=== PATIENT | male | born 1950 | race Caucasian/White ===

== ENCOUNTER 2017-11-20 13:05 | Day surgery (SDC) | payer OTHER ==
[~2017-11-20] VITALS: Ht 177.8 cm; Wt 89.9 kg
[~2017-11-20 13:05] MED LIST: ABAC300; ASPI325; ASPI325 PO; ASPI325EC PO; ATOR20 PO; CIPR500 PO; CORGARD20 MG; CORGARD20 MG PO; DOCSEN PO; DOXA2 PO; DOXA4 PO; Diovan40 MG PO; FINASTERIDE1 MG PO; HALO5 PO; LISI20 PO; METO25ER; METO25ER PO; NADO20 PO; OMEP40CA12 PO; OXYACE5T PO; OXYC5 PO; PHENA100 PO; SIMV40 PO; WARF5 PO; [UNRECOGNIZED DRUG - OTHER] PO; [UNRECOGNIZED DRUG - REMARK]; [UNRECOGNIZED DRUG - REMARK]
[2017-11-20] MEDS ORDERED: LISI20 (13:24)
[2017-11-20] MEDS ORDERED: ROSU10TA (13:24)
== END 2017-11-20 14:16 | disposition home or self-care (01) ==
LOC: ORSCSDS 13:05
PROVIDERS: Internal Medicine Gastroenterology
PROC: 0DJD8ZZ Inspection of Lower Intestinal Tract, Via Natural or Artificial Opening Endoscopic (ICD-10-PCS; principal; 2017-11-20 14:30)
DX: Z12.11 Encounter for screening for malignant neoplasm of colon (principal); K64.8 Other hemorrhoids; K57.30 Diverticulosis of large intestine without perforation or abscess without bleeding; K63.89 Other specified diseases of intestine; G47.33 Obstructive sleep apnea (adult) (pediatric); I10 Essential (primary) hypertension; E78.00 Pure hypercholesterolemia, unspecified; F41.1 Generalized anxiety disorder; I48.91 Unspecified atrial fibrillation; I73.9 Peripheral vascular disease, unspecified; K58.9 Irritable bowel syndrome, unspecified; Z79.82 Long term (current) use of aspirin; Z79.899 Other long term (current) drug therapy

== ENCOUNTER → 2019-04-29 | Outpatient (CLI) | payer OTHER ==
[~2019-04-29] MED LIST changes: +CIPR750 PO; +DEXA4 PO; +LISI20; +METO10 PO; +METR500 PO; +OLAN5 PO; +ONDA4ODT MM; +OXYB5 PO; +ROSU10TA; +ROSU10TA PO; +SILDENAFIL20 MG PO; +TADA10TA PO; +XARELTO20 MG PO
== END | disposition home or self-care (01) ==
LOC: PLD 07:13 → LAB SHORT 07:13
DX: C10.9 Malignant neoplasm of oropharynx, unspecified (principal); R59.0 Localized enlarged lymph nodes
CPT/HCPCS: 88173; 88305; 88342

== ENCOUNTER 2019-06-14 06:10 | Day surgery (SDC) | payer OTHER ==
[~2019-06-14] VITALS: Ht 180.3 cm; Wt 91.0 kg
[~2019-06-14 06:10] MED LIST changes: -SILDENAFIL20 MG PO
--- NOTE | 2019-06-14 06:41 | NUR ---
History, Chart, Medications and Allergies reviewed before start of procedure. Patient confirms NPO status and agrees with scheduled surgery. Lungs clear T/O to Auscultation. Pre-Op teaching done. Pt verbalizes understanding. Patient reports completing Chlorhexadine shower X2 prior to admission to hospital. Patient States Post-Procedure ride home has been arranged. PATIENT REMOVED HIS [place] RING AND A FALSE TOOTH AND PLACED IN A CLEAR BAGGIE IN HIS BELONGINGS AT ADMIT.
[2019-06-14] MEDS ORDERED: SILDENAFIL20 MG PO (07:19)
--- NOTE | 2019-06-14 07:19 | NUR ---
TRACKER EXPLAINED TO FAMILY, OPPORTUNITY FOR QUESTIONS PROVIDED.
--- NOTE | 2019-06-14 07:27 | NUR ---
BLOOD BANK ASSISTANT REPORT COMPLETED AT BEDSIDE WITH BRENNEN VELASQUEZ RN.
--- NOTE | 2019-06-14 07:30 | NUR ---
OR WILL LEAVE BILL ACCESSED FOR HIS TREATMENT TODAY.
--- NOTE | 2019-06-14 07:33 | NUR ---
CHANGE OF PLANS, WILL CALL [facility] TO CLARIFY WHEN FLUID INFUSION WILL BE HAPPENING AND DECIDE IF MEDIPORT WILL BE LEFT ACCESSED. CLARIFIED WITH PATIENT THAT HIS TREATMENT TODAY IS FOR RADIATION ONLY.
--- NOTE | 2019-06-14 08:42 | NUR ---
06/14/19 0842 Diane Gray INTO OR 2 POST MEDIPORT PLACEMENT FOR PEG TUBE PLACEMENT. PLAN FOR BRENNEN TO BE PRESENT FOR EXTUBATION ASSIST WITH DR ZAYAS.
--- NOTE | 2019-06-14 09:50 | NUR ---
DISCUSSED ADMINISTRATION OF ADDITIONAL FLUIDS FOR PATIENT DURING OR CASE WITH , CHERYLE HAS NOT BEEN TAKING PO FLUIDS AT ALL AND THERE IS AN APPOINTMENT FOR MONDAY IN [facility] (PER ) TO GET ADDITIONAL FLUIDS THROUGH MEDIPORT. PATIENT'S THROAT IS VERY SORE AFTER THE PROCEDURE, MINIMIZING TALKING, REFUSES FLUIDS AT THIS TIME.
--- NOTE | 2019-06-14 10:44 | NUR ---
PATIENT UP TO VOID AND D/C HOME IN STABLE CONDITION VIA WC IN CARE OF SPOUSE.
--- NOTE | 2019-06-14 10:49 | NUR ---
PATIENT AND SPOUSE DECIDED THAT THEY WERE OK WITH NORCO ORAL TABLETS PRESCRIPTION, BECAUSE HE IS ABLE TO SWALLOW THEM IT IS JUST VERY PAINFUL. PATIENT GIVEN LIQUID LORTAB IN STEP DOWN DUE TO INCREASED SORE THROAT R/T PROCEDURE TODAY. PATIENT AND SPOUSE PLAN TO F/U WITH HIS PCP ABOUT INEFFECTIVENESS OF FENTANYL PATCH THAT WAS RECENTLY PRESCRIBED. PATIENT AND SPOUSE HAPPY WITH THE PLAN FOR PAIN CONTROL. APPOINTMENT THIS AFTERNOON FOR PEG EDUCATION AFTER RADIATION [place]. ADVISED TO CONTACT THEIR PHARMACY TO DETERMINE WHICH OF HIS MEDICATIONS CAN BE CRUSHED AND ADDRESS ANY UNCRUSHABLE MEDICATIONS WITH THEIR PRESCRIBING PHYSICIAN. PATIENT AND SPOUSE VERBALIZED UNDERSTANDING.
== END 2019-06-14 23:49 | disposition home or self-care (01) ==
LOC: ORSCMMR 06:10 → ORD 07:30 → ORSCMMR 23:49
PROVIDERS: Surgery
PROC: 05H533Z Insertion of Infusion Device into Right Subclavian Vein, Percutaneous Approach (ICD-10-PCS; principal; 2019-06-14 07:30)
PROC: 0DH63UZ Insertion of Feeding Device into Stomach, Percutaneous Approach (ICD-10-PCS; principal; 2019-06-14 07:30)
PROC: B5161ZA Fluoroscopy of Right Subclavian Vein using Low Osmolar Contrast, Guidance (ICD-10-PCS; principal; 2019-06-14 07:30)
DX: C09.9 Malignant neoplasm of tonsil, unspecified (principal); C77.0 Secondary and unspecified malignant neoplasm of lymph nodes of head, face and neck; R63.4 Abnormal weight loss; R13.14 Dysphagia, pharyngoesophageal phase; Z79.899 Other long term (current) drug therapy
CPT/HCPCS: 71045; 77001; C1769; C1788; J0330; J0690; J1100; J1642; J2250; J2405; J2704; J3010; J7120

== ENCOUNTER 2019-06-16 09:09 | Day surgery (SDC) | payer OTHER ==
[~2019-06-16 09:09] MED LIST changes: +SILDENAFIL20 MG PO
[2019-06-16] MEDS ORDERED: OXYB5 PO (10:51)
--- NOTE | 2019-06-16 10:56 | NUR ---
SPOKE WITH Camacho PEREIRA WHO IS CLOUD OPERATIONS ENGINEER FOR DOCTOR [employer]OM. RECEIVED AN ORDER TO ACCESS MEDIPORT TODAY AND FOR STANDING ORDERS FOR MEDIPORT USE AND FLUSHES.
== END 2019-06-16 10:38 | disposition home or self-care (01) ==
LOC: ATC 09:09
DX: C09.1 Malignant neoplasm of tonsillar pillar (anterior) (posterior) (principal); I10 Essential (primary) hypertension; I25.10 Atherosclerotic heart disease of native coronary artery without angina pectoris; F41.9 Anxiety disorder, unspecified; Z79.899 Other long term (current) drug therapy
CPT/HCPCS: 96360; J1642; J7030

== ENCOUNTER → 2019-06-17 | Outpatient (CLI) | payer OTHER ==
[2019-06-17 10:56] LABS: BASOPHILS ABSOLUTE AUTO 0.01 K/mm3 (0.00-0.23); BASOPHILS PERCENT AUTO 0 % (0-2); EOSINOPHILS ABSOLUTE AUTO 0.05 K/mm3 (0.00-0.68); EOSINOPHILS PERCENT AUTO 2 % (0-6); Hematocrit 40.4 % (37.0-53.0); Hemoglobin 13.3 g/dL (13.5-17.5); IMMATURE GRAN ABSOLUTE AUTO 0.02 K/mm3 (0.00-0.10); IMMATURE GRAN PERCENT AUTO 1 % (0-1); LYMPHOCYTES ABSOLUTE AUTO 0.72 K/mm3 (0.84-5.20); LYMPHOCYTES PERCENT AUTO 22 % (21-46); MONOCYTES ABSOLUTE AUTO 0.49 K/mm3 (0.16-1.47); MONOCYTES PERCENT AUTO 15 % (4-13); Mean Corpuscular HGB 28.7 pg (26.0-34.0); Mean Corpuscular HGB Conc 32.9 g/dL (31.5-36.5); Mean Corpuscular Volume 87 fL (80-100); Mean Platelet Volume 9.6 fL (9.1-12.4); NEUTROPHILS ABSOLUTE AUTO 2.04 K/mm3 (1.96-9.15); NEUTROPHILS PERCENT AUTO 61 % (41-73); Platelet Count 205 K/mm3 (150-400); RDW Coefficient Variation 12.6 % (11.7-14.2); RDW Standard Deviation 39.5 fL (35.1-46.3); Red Blood Cell Count 4.64 M/mm3 (4.30-5.90); White Blood Cell Count 3.33 K/mm3 (4.00-11.30)
[2019-06-17 11:15] LABS: Alanine Aminotransfer (ALT/SGP 17 U/L (12-78); Albumin, Blood 3.3 g/dL (3.4-5.0); Albumin/Globulin Ratio 0.9 (0.8-1.8); Alk Phos 74 U/L (50-136); Anion Gap 4 mmol/L (6-16); Aspartate Aminotrans (AST/SGOT 10 U/L (12-37); Bilirubin, Total 0.3 mg/dL (0.1-1.0); Blood Urea Nitrogen 14 mg/dL (8-24); Bun/Creatinine Ratio 15.7 (12.0-20.0); CO2, Blood 29 mmol/L (21-32); Calcium, Blood 8.9 mg/dL (8.5-10.1); Chloride, Blood 104 mmol/L (98-108); Creatinine, Blood 0.89 mg/dL (0.60-1.20); Globulin, Blood 3.5 g/dL (2.2-4.0); Glomerular Filtration Rate >60 (60-); Glucose, Blood 81 mg/dL (70-99); Potassium, Blood 3.8 mmol/L (3.5-5.5); Sodium, Blood 137 mmol/L (136-145); Total Protein, Blood 6.8 g/dL (6.4-8.2)
== END | disposition home or self-care (01) ==
LOC: LAB 10:23 → LAB SHORT 10:23
PROVIDERS: Internal Medicine Hematology & Oncology
DX: C09.1 Malignant neoplasm of tonsillar pillar (anterior) (posterior) (principal)
CPT/HCPCS: 80053; 85025

== ENCOUNTER 2019-06-23 12:26 | Day surgery (SDC) | payer OTHER | END 2019-06-23 13:52 | disposition home or self-care (01) | LOC: ATC 12:26 | DX: C09.1 Malignant neoplasm of tonsillar pillar (anterior) (posterior) (principal); N28.89 Other specified disorders of kidney and ureter; I10 Essential (primary) hypertension; I25.10 Atherosclerotic heart disease of native coronary artery without angina pectoris; F41.9 Anxiety disorder, unspecified; E78.00 Pure hypercholesterolemia, unspecified; I25.2 Old myocardial infarction; Z79.899 Other long term (current) drug therapy; Z79.01 Long term (current) use of anticoagulants | CPT/HCPCS: 96360; J1642; J7030 ==

== ENCOUNTER 2019-07-07 13:27 | Day surgery (SDC) | payer OTHER ==
[~2019-07-07 13:27] MED LIST changes: -LISI20
[2019-07-07] MEDS ORDERED: Fentanyl1 EACH TOP (14:03)
[2019-07-07] MEDS ORDERED: OLAN5 PO (14:03)
== END 2019-07-07 14:48 | disposition home or self-care (01) ==
LOC: ATC 13:27
DX: C09.1 Malignant neoplasm of tonsillar pillar (anterior) (posterior) (principal); I10 Essential (primary) hypertension; E78.00 Pure hypercholesterolemia, unspecified; F41.9 Anxiety disorder, unspecified; I25.10 Atherosclerotic heart disease of native coronary artery without angina pectoris; I25.2 Old myocardial infarction; Z79.899 Other long term (current) drug therapy; Z79.02 Long term (current) use of antithrombotics/antiplatelets
CPT/HCPCS: 96360; J1642; J7030

== ENCOUNTER 2019-07-12 00:59 | Day surgery (SDC) | payer OTHER ==
[~2019-07-12 00:59] MED LIST changes: +Fentanyl1 EACH TOP
== END 2019-07-12 14:49 | disposition home or self-care (01) ==
LOC: ATC 00:59
DX: C09.1 Malignant neoplasm of tonsillar pillar (anterior) (posterior) (principal); I10 Essential (primary) hypertension; I25.10 Atherosclerotic heart disease of native coronary artery without angina pectoris; E78.00 Pure hypercholesterolemia, unspecified; Z79.899 Other long term (current) drug therapy; Z79.02 Long term (current) use of antithrombotics/antiplatelets
CPT/HCPCS: J1642; J7030

== ENCOUNTER 2019-07-14 13:18 | Day surgery (SDC) | payer OTHER ==
--- NOTE | 2019-07-14 14:43 | NUR ---
PT HAS ASYMPTOMATIC LOW BP THIS AFTERNOON. HOWEVER, PT DOES REPORT BEING DIZZY EARLIER THIS MORNING AND VERY TIRED. OFFERED ER FOR EVAL OR URGENT CARE. ALSO OFFERED TO CALL RELIGIOUS LEADER PHYSICIAN FOR MORE FLUIDS. PT WOULD LIKE TO GO HOME AND WILL CALL THE RELIGIOUS LEADER MD TO DISCUSS LOW BP'S AND DISCUSS HIS NIGHTTIME BP MEDICATION.
== END 2019-07-14 14:35 | disposition home or self-care (01) ==
LOC: ATC 13:18
DX: C09.1 Malignant neoplasm of tonsillar pillar (anterior) (posterior) (principal); I10 Essential (primary) hypertension; E78.00 Pure hypercholesterolemia, unspecified; I25.10 Atherosclerotic heart disease of native coronary artery without angina pectoris; F41.9 Anxiety disorder, unspecified; I48.91 Unspecified atrial fibrillation; K58.9 Irritable bowel syndrome, unspecified; I25.2 Old myocardial infarction; Z79.01 Long term (current) use of anticoagulants; Z79.899 Other long term (current) drug therapy
CPT/HCPCS: J1642; J7030

== ENCOUNTER → 2021-02-09 | Outpatient (CLI) | payer OTHER | END | disposition home or self-care (01) | LOC: LAB SHORT 11:18 → PLD 11:18 | DX: D48.5 Neoplasm of uncertain behavior of skin (principal) | CPT/HCPCS: 88305 ==

== ENCOUNTER → 2023-05-24 | Outpatient (CLI) | payer OTHER | LOC: PLD 13:00 → LAB SHORT 13:00 | DX: C44.319 Basal cell carcinoma of skin of other parts of face (principal) | CPT/HCPCS: 88305 ==

== ENCOUNTER → 2023-08-01 | Outpatient (CLI) | payer OTHER | LOC: LAB SHORT 14:38 → PLD 14:38 | DX: C44.42 Squamous cell carcinoma of skin of scalp and neck (principal) | CPT/HCPCS: 88305 ==